=== PATIENT | female | born 1980 | race Caucasian/White ===

== ENCOUNTER 2018-11-26 00:50 | Emergency (ER) | payer OTHER ==
[~2018-11-26] VITALS: Ht 157.5 cm; Wt 45.4 kg
[~2018-11-26 00:50] MED LIST: NORG7TAB PO
--- NOTE | 2018-11-26 00:55 | NUR ---
Dr. Joseph at bedside for MSE.
[2018-11-26] MEDS ORDERED: IV NORMAL SALINE 1000 ML BAG IV ONE (01:00)
[2018-11-26] MEDS ORDERED: PANTOPRAZOLE SODIUM 40 MG VIAL IV ONE (01:00)
[2018-11-26] MEDS ORDERED: ONDANSETRON 4 MG/2 ML VIAL IV ONE ×2 (01:00→02:00)
[2018-11-26] MEDS ORDERED: PANTOPRAZOLE SODIUM 40 MG VIAL ONE (01:03)
[2018-11-26] MEDS ORDERED: ONDANSETRON 4 MG/2 ML VIAL ONE ×2 (01:03→01:56)
[2018-11-26 01:31] LABS: BASOPHILS % (AUTO) 0.4 % (0.0-2.0); EOSINOPHILS # (AUTO) 0.1 K/uL (0.0-0.7); EOSINOPHILS % (AUTO) 1.3 % (0.0-7.0); HEMATOCRIT 38.2 % (31.2-41.9); LYMPHOCYTES # (AUTO) 2.7 K/uL (20.0-40.0); LYMPHOCYTES % (AUTO) 43.2 % (20.5-51.5); MEAN CORPUSCULAR HEMOGLOBIN 30.5 uug (24.7-32.8); MEAN CORPUSCULAR HGB CONC 34 g/dL (32.3-35.6); MEAN CORPUSCULAR VOLUME 89.9 fL (75.5-95.3); MONOCYTES # (AUTO) 0.3 K/uL (2.0-10.0); MONOCYTES % (AUTO) 5.3 % (0.0-11.0); NEUTROPHILS # (AUTO) 3.1 K/uL (1.8-8.9); NEUTROPHILS % (AUTO) 49.8 % (38.5-71.5); PLATELET COUNT (AUTO) 210 K/uL (179-408); RED BLOOD CELL COUNT(AUTO) 4.25 MIL/uL (3.63-4.92); WHITE BLOOD COUNT (AUTO) 6.3 K/uL (3.8-11.8)
[2018-11-26 01:44] LABS: BILIRUBIN,DIRECT 0.1 mg/dL (0.0-0.2); BILIRUBIN,TOTAL 0.5 mg/dL (0.2-1.0); CREATININE 0.7 mg/dL (0.6-1.3); POTASSIUM 3.1 mmol/L (3.5-5.1); TOTAL PROTEIN, SERUM 6.9 g/dL (6.4-8.2)
--- NOTE | 2018-11-26 02:40 | NUR ---
Patient discharged to home in stable conditon. Written and verbal after care instructions given to . verbalizes understanding of instructions. Patient out of ER via wheelchair, assisted patient to vehicle, no falls noted, VSS, IV site discontinued, no acute signs of distress, all belongings taken, to be driven via private vehicle by
[2018-11-26 02:43] VITALS: BP 107/67
== END 2018-11-26 02:44 | disposition home or self-care (01) ==
LOC: ER 00:52
DX: F10.129 Alcohol abuse with intoxication, unspecified (principal); Z79.899 Other long term (current) drug therapy; Y90.7 Blood alcohol level of 200-239 mg/100 ml
CPT/HCPCS: 36415; 80048; 80076; 82962; 84702; 85025; 96361; 96374; 96375; 96376; 99283; C9113; G0480; J2405 ×2; A4663; J7030